=== PATIENT | male | born 1940 | race Caucasian/White ===

== ENCOUNTER 2021-04-18 12:33 | Inpatient (IN) | payer MEDICARE, OTHER ==
[~2021-04-18] VITALS: Ht 170.2 cm; Wt 110.2 kg
--- NOTE | 2021-04-18 12:44 | NUR ---
TO ER BED 4, C/O SOB AND LABORED BREATHING, ATTACHED TO MONITOR AND POX, SALINE LOCK ESTABLISHED
[2021-04-18 12:58] LABS: BASOPHILS % (AUTO) 0.3 % (0.0-2.0); EOSINOPHILS % (AUTO) 0.1 % (0.0-6.0); HEMATOCRIT 36 % (39-51); HEMOGLOBIN 11.9 g/dL (13.5-17.5); MEAN CORPUSCULAR HGB CONC 33 g/dl (31.0-36.0); MEAN CORPUSCULAR VOLUME 92 fL (80-96); MONOCYTES # (AUTO) 1.2 K/uL (0.1-1.30); MONOCYTES % (AUTO) 9.1 % (2.0-12.0); NEUTROPHILS # (AUTO) 10.4 K/uL (1.8-8.9); NEUTROPHILS % (AUTO) 82.5 % (43.0-81.0); PLATELET COUNT (AUTO) 171 K/uL (150-450); RED BLOOD CELL COUNT(AUTO) 3.96 MIL/uL (4.5-6.0); WHITE BLOOD COUNT (AUTO) 12.6 K/uL (4.3-11.0)
--- NOTE | 2021-04-18 12:58 | NUR ---
COVID SWAB SENT TO LAB
[2021-04-18] MEDS ORDERED: SERT100T PO (13:02)
[2021-04-18] MEDS ORDERED: RISP2TAB85 PO (13:02)
[2021-04-18] MEDS ORDERED: FAMO20TA8 PO (13:02)
[2021-04-18] MEDS ORDERED: ATOR20TA PO (13:02)
--- NOTE | 2021-04-18 13:02 | NUR ---
RAD AT BEDSIDE
[2021-04-18 13:27] LABS: ALANINE AMINOTRANSFERASE 22 U/L (12-78); ALBUMIN 3.2 g/dL (3.4-5.0); ALKALINE PHOSPHATASE 66 U/L (46-116); ASPARTATE AMINOTRANSFERASE 21 U/L (15-37); BILIRUBIN,DIRECT 0.2 mg/dL (0.0-0.2); BILIRUBIN,TOTAL 0.7 mg/dL (0.2-1.0); CALCIUM, SERUM 8.6 mg/dL (8.5-10.1); CARBON DIOXIDE 25 mmol/L (21-32); CHLORIDE 106 mmol/L (98-107); CREATININE 2.2 mg/dL (0.6-1.3); GLUCOSE 125 mg/dL (74-106); POTASSIUM 3.8 mmol/L (3.5-5.1); SODIUM SERUM 143 mmol/L (136-145); UREA NITROGEN, BLOOD 34 mg/dL (7-18)
[2021-04-18] MEDS ORDERED: IV NS 0.9% 1,000 ML BAG IV ONE (14:00)
--- NOTE | 2021-04-18 14:26 | NUR ---
JAMES, CALLED, SPOKE TO AND PROVIDED HUNG# [phone]
[2021-04-18] MEDS ORDERED: ONDANSETRON HCL/PF 4 MG/2 ML VIAL IVP PRN (15:30)
[2021-04-18] MEDS ORDERED: Z GUARD REMEDY 2 OZ OINT TP PRN (15:30)
[2021-04-18] MEDS ORDERED: ACETAMINOPHEN 325 MG TABLET PO PRN (15:30)
[2021-04-18] MEDS ORDERED: hydrALAZINE HCL IV 20 MG VIAL IV PRN (15:30)
[2021-04-18] MEDS ORDERED: MAGNESIUM HYDROXIDE 30 ML UDC PO PRN (15:30)
[2021-04-18] MEDS ORDERED: MAG HYDROX/AL HYDROX/SIMETH 30 ML UDC PO PRN (15:30)
[2021-04-18] MEDS ORDERED: MORPHINE SULFATE INJ 2 MG/ML DISP.SYRIN IV PRN (15:30)
--- NOTE | 2021-04-18 16:01 | NUR ---
BED 104
[2021-04-18 17:00] VITALS: BP 150/97
[2021-04-18 20:00] VITALS: BP 125/76
--- NOTE | 2021-04-18 20:30 | NUR ---
Pts noted pulling iv , informed md enriquez with order for bilateral mittens iv peripheral inserted on left hand x 1 attempt with G22 with good blood return well tolerated by pts.spoke to the for the mittens order. consented for the restraint , will continue to monitor pts.
--- NOTE | 2021-04-18 21:19 | NUR ---
RN NOTE. PT IS PULLING IVS. NOTIFIED RIA MORE. RECEIVED THE ORDER FOR NICK.
[2021-04-18] MEDS: IV NS 0.9% 1,000 ML IV PRN (21:24)
[2021-04-18] MEDS: ATORVASTATIN 40 MG TABLET PO SCH (21:25)
[2021-04-18] MEDS: risperiDONE 1 MG TABLET PO SCH (21:25)
[2021-04-18] MEDS: ENOXAPARIN SODIUM 40 MG/0.4 ML DISP.SYRIN SQ SCH (21:25)
--- NOTE | 2021-04-18 23:26 | NUR ---
CARDROOM DRAWING RUNNER. INITIAL ASSESSMENT. RECEIVED THE PT REST ON THE BED. AWAKE, ALERT. CONFUSED. PULLING OUT IVS. ROOM AIR. HOB ELEVATED. IV LT HAND 22G. IVF NS 75ML/H. WILL CONTINUE TO MONITOR VITALS.
[2021-04-19] VITALS: BP 118/62
--- NOTE | 2021-04-19 03:29 | NUR ---
rn note AM CARE GIVEN. REMAINING SAME IVF RUNNING. HOB ELEVATED. TURN AND RE POSITION Q2H, WILL CONTINUE TO MONITOR . WILL CONTINUE TO MONITOR VITALS
[2021-04-19 04:00] VITALS: BP 118/62
[2021-04-19 05:51] LABS: BASOPHILS % (AUTO) 0.2 % (0.0-2.0); EOSINOPHILS % (AUTO) 0.3 % (0.0-6.0); HEMATOCRIT 35 % (39-51); HEMOGLOBIN 11.6 g/dL (13.5-17.5); LYMPHOCYTES # (AUTO) 1.2 K/uL (0.8-4.8); LYMPHOCYTES % (AUTO) 10.3 % (20.0-44.0); MEAN CORPUSCULAR HGB CONC 33 g/dl (31.0-36.0); MEAN CORPUSCULAR VOLUME 92 fL (80-96); MONOCYTES # (AUTO) 0.9 K/uL (0.1-1.30); MONOCYTES % (AUTO) 7.8 % (2.0-12.0); NEUTROPHILS # (AUTO) 9.6 K/uL (1.8-8.9); NEUTROPHILS % (AUTO) 81.4 % (43.0-81.0); PLATELET COUNT (AUTO) 161 K/uL (150-450); WHITE BLOOD COUNT (AUTO) 11.8 K/uL (4.3-11.0)
[2021-04-19 06:18] LABS: ALANINE AMINOTRANSFERASE 22 U/L (12-78); ALBUMIN 3.2 g/dL (3.4-5.0); ALKALINE PHOSPHATASE 59 U/L (46-116); ASPARTATE AMINOTRANSFERASE 32 U/L (15-37); BILIRUBIN,TOTAL 0.8 mg/dL (0.2-1.0); CALCIUM, SERUM 8.5 mg/dL (8.5-10.1); CARBON DIOXIDE 26 mmol/L (21-32); CHLORIDE 109 mmol/L (98-107); CREATININE 2.4 mg/dL (0.6-1.3); GLUCOSE 104 mg/dL (74-106); MAGNESIUM 2.5 mg/dL (1.8-2.4); PHOSPHORUS 5.4 mg/dL (2.5-4.9); POTASSIUM 4.1 mmol/L (3.5-5.1); SODIUM SERUM 145 mmol/L (136-145); TOTAL PROTEIN, SERUM 6.9 g/dL (6.4-8.2); UREA NITROGEN, BLOOD 42 mg/dL (7-18)
[2021-04-19 08:00] VITALS: BP 144/82
--- NOTE | 2021-04-19 08:10 | NUR ---
RN Note: Pt received alert awake oriented X 1, with periods of forgetfulness, confusion. On RA, no breathing distress noted. IV fluids running as ordered. Safety measures observed. Bilateral hand mittens ON for safety, Pt attempting remove lines/tubings. Will continue to monitor closely.
[2021-04-19] MEDS: FAMOTIDINE (20 MG) 20 MG TABLET PO SCH (08:39)
[2021-04-19] MEDS: SERTRALINE HCL 50 MG TABLET PO SCH (08:39)
[2021-04-19 12:00] VITALS: BP 137/76
[2021-04-19] MEDS: CLINDAMYCIN 900 MG in IV D5W 50 ML IV SCH ×2 (12:35→21:07)
[2021-04-19] MEDS: IV NS 0.9% 1,000 ML IV PRN ×2 (12:35→21:11)
[2021-04-19 16:00] VITALS: BP 141/85
[2021-04-19 20:00] VITALS: BP 129/72
[2021-04-19] MEDS: ATORVASTATIN 40 MG TABLET PO SCH (21:08)
[2021-04-19] MEDS: ENOXAPARIN SODIUM 40 MG/0.4 ML DISP.SYRIN SQ SCH (21:08)
[2021-04-19] MEDS: risperiDONE 1 MG TABLET PO SCH (21:09)
[2021-04-20 04:00] VITALS: BP 149/83
[2021-04-20] MEDS: CLINDAMYCIN 900 MG in IV D5W 50 ML IV SCH ×3 (05:10→21:11)
--- NOTE | 2021-04-20 07:39 | NUR ---
RN OPENING NOTE: Patient is alert awake oriented X 1, with periods of confusion and agitation. On RA, no respiratory distress noted. Hand mittens in place due to attempts of removal of lines. Safety checks done, bed in locked and lowest position, side rails up x 3, call light within reach.
[2021-04-20 08:15] LABS: BASOPHILS % (AUTO) 0.3 % (0.0-2.0); EOSINOPHILS % (AUTO) 0.1 % (0.0-6.0); HEMATOCRIT 32 % (39-51); HEMOGLOBIN 10.7 g/dL (13.5-17.5); LYMPHOCYTES # (AUTO) 0.9 K/uL (0.8-4.8); LYMPHOCYTES % (AUTO) 7.5 % (20.0-44.0); MEAN CORPUSCULAR HGB CONC 34 g/dl (31.0-36.0); MEAN CORPUSCULAR VOLUME 92 fL (80-96); MONOCYTES # (AUTO) 1.1 K/uL (0.1-1.30); MONOCYTES % (AUTO) 9.5 % (2.0-12.0); NEUTROPHILS # (AUTO) 9.7 K/uL (1.8-8.9); NEUTROPHILS % (AUTO) 82.6 % (43.0-81.0); PLATELET COUNT (AUTO) 162 K/uL (150-450); RED BLOOD CELL COUNT(AUTO) 3.47 MIL/uL (4.5-6.0); WHITE BLOOD COUNT (AUTO) 11.8 K/uL (4.3-11.0)
[2021-04-20] MEDS: FAMOTIDINE (20 MG) 20 MG TABLET PO SCH (08:34)
[2021-04-20] MEDS: SERTRALINE HCL 50 MG TABLET PO SCH (08:35)
[2021-04-20 08:50] LABS: ALANINE AMINOTRANSFERASE 32 U/L (12-78); ALBUMIN 2.9 g/dL (3.4-5.0); ALKALINE PHOSPHATASE 60 U/L (46-116); ASPARTATE AMINOTRANSFERASE 41 U/L (15-37); BILIRUBIN,TOTAL 0.6 mg/dL (0.2-1.0); CARBON DIOXIDE 23 mmol/L (21-32); CHLORIDE 110 mmol/L (98-107); CREATININE 3.2 mg/dL (0.6-1.3); GLUCOSE 113 mg/dL (74-106); MAGNESIUM 2.5 mg/dL (1.8-2.4); PHOSPHORUS 5.3 mg/dL (2.5-4.9); POTASSIUM 3.6 mmol/L (3.5-5.1); SODIUM SERUM 145 mmol/L (136-145); TOTAL PROTEIN, SERUM 6.5 g/dL (6.4-8.2); UREA NITROGEN, BLOOD 56 mg/dL (7-18)
[2021-04-20 10:18] LABS: CREATINE KINASE, TOTAL 372 U/L (39-308)
[2021-04-20 12:18] VITALS: BP 143/80
[2021-04-20 15:11] LABS: ALANINE AMINOTRANSFERASE 34 U/L (12-78); ALBUMIN 2.8 g/dL (3.4-5.0); ALKALINE PHOSPHATASE 59 U/L (46-116); ASPARTATE AMINOTRANSFERASE 43 U/L (15-37); BILIRUBIN,TOTAL 0.5 mg/dL (0.2-1.0); CALCIUM, SERUM 8.2 mg/dL (8.5-10.1); CARBON DIOXIDE 25 mmol/L (21-32); CHLORIDE 112 mmol/L (98-107); CREATININE 3.4 mg/dL (0.6-1.3); GLUCOSE 119 mg/dL (74-106); POTASSIUM 3.7 mmol/L (3.5-5.1); SODIUM SERUM 147 mmol/L (136-145); TOTAL PROTEIN, SERUM 6.4 g/dL (6.4-8.2); UREA NITROGEN, BLOOD 59 mg/dL (7-18)
--- NOTE | 2021-04-20 16:00 | NUR ---
CT Abdomen/pelvis done.
--- NOTE | 2021-04-20 16:33 | NUR ---
Noted with hematuria on F/C MD amanda notified, gave order to flush with 200ml q6 PRN, continue with lovenox do not hold. Will continue to monitor.
--- NOTE | 2021-04-20 18:59 | NUR ---
RN CLOSING NOTES Patient is alert and oriented x1, with periods of agitation and confusion as baseline. F/C inserted due to abdominal distention obtained 3400cc at the end of shift. Pt went for CT scan of ABD/Pelvis upon return noted with hematuria, irrigated with NS effective. Removed one hand mitten for trial restraint D/C is ineffective. 02 88-90% room air with audible wheezing, placed on 2 liters of 02 93-94%. T 99.0-99.4F during shift. Assisted for all meals by staff, combative during AM care-linen change. Safety check done, bed locked in lowest position, side rails up x 3, call light wihtin reach.
--- NOTE | 2021-04-20 19:20 | NUR ---
RN OPENING NOTES PT RECEIVED IN BED. CURRENTLY ON ROOM AIR SHOWING NO S/S OF RESPIRATORY DISTRESS/SOB. PT IS A&OX1. LOW CATHETER NOTED. PT HAS MITTENS ON HANDS DUE TO PT ATTEMPTING TO REMOVE IV LINE. SKIN REDNESS/EDEMA NOTED ON LOWER LEGS. PT CURRENTLY ON REGULAR DIET AND HAS IV LINE ON LEFT HAND FLUSHED, PATENT, AND INTACT. ALL SAFETY MEASURES IMPLEMENTED. BED LOCKED AND IN LOWEST POSITION. BED ALARM ON. CALL LIGHT WITHIN REACH. WILL CONTINUE TO MONITOR THROUGHOUT THE SHIFT. Addendum: 04/20/21 at 2348 by KASSY GONCALVES RN PT NOW ON 2L O2 VIA NC
[2021-04-20 20:00] VITALS: BP 136/79
[2021-04-20] MEDS: ENOXAPARIN SODIUM 40 MG/0.4 ML DISP.SYRIN SQ SCH (21:09)
[2021-04-20] MEDS: ATORVASTATIN 40 MG TABLET PO SCH (21:10)
[2021-04-20] MEDS: risperiDONE 1 MG TABLET PO SCH (21:10)
[2021-04-21 04:00] VITALS: BP_SYST 111; BP_SYST 136; BP_DIAS 64; BP_DIAS 89
[2021-04-21] MEDS: CLINDAMYCIN 900 MG in IV D5W 50 ML IV SCH (05:04)
--- NOTE | 2021-04-21 06:39 | NUR ---
RN CLOSING NOTES NO CHANGES IN PT CONDITION THROUGHOUT SHIFT. PT IS ON 2L OF O2 VIA NC SHOWING NO S/S OF RESPIRATORY DISTRESS. PT IS A&OX1. PT HAS REDNESS ON BILATERAL LOWER LEG EXTREMITIES. IV LINE ON LEFT HAND AND RIGHT HAND FLUSHED, PATENT, AND INTACT. PT KEPT CLEAN AND COMFORTABLE THROUGHOUT SHIFT. ALL DUE MEDS GIVEN ORDERED. ALL SAFETY MEASURES IMPLEMENTED. BED LOCKED AND IN LOWEST POSITION. BED ALARM ON. CALL LIGHT WITHIN REACH. WILL ENDORSE TO MORNING SHIFT RN FOR SANJIV.
[2021-04-21 08:00] VITALS: BP 132/78
[2021-04-21] MEDS: SERTRALINE HCL 50 MG TABLET PO SCH (09:16)
[2021-04-21] MEDS: FAMOTIDINE (20 MG) 20 MG TABLET PO SCH (09:16)
[2021-04-21 09:55] LABS: BASOPHILS % (AUTO) 0.3 % (0.0-2.0); EOSINOPHILS % (AUTO) 0.4 % (0.0-6.0); HEMATOCRIT 34 % (39-51); HEMOGLOBIN 11.2 g/dL (13.5-17.5); LYMPHOCYTES # (AUTO) 0.9 K/uL (0.8-4.8); LYMPHOCYTES % (AUTO) 8.5 % (20.0-44.0); MEAN CORPUSCULAR HGB CONC 33 g/dl (31.0-36.0); MEAN CORPUSCULAR VOLUME 93 fL (80-96); MONOCYTES # (AUTO) 1.1 K/uL (0.1-1.30); MONOCYTES % (AUTO) 9.7 % (2.0-12.0); NEUTROPHILS # (AUTO) 9.1 K/uL (1.8-8.9); NEUTROPHILS % (AUTO) 81.1 % (43.0-81.0); PLATELET COUNT (AUTO) 166 K/uL (150-450); RED BLOOD CELL COUNT(AUTO) 3.68 MIL/uL (4.5-6.0); WHITE BLOOD COUNT (AUTO) 11.2 K/uL (4.3-11.0)
[2021-04-21 10:18] LABS: ALANINE AMINOTRANSFERASE 38 U/L (12-78); ALBUMIN 2.6 g/dL (3.4-5.0); ALKALINE PHOSPHATASE 61 U/L (46-116); ASPARTATE AMINOTRANSFERASE 36 U/L (15-37); BILIRUBIN,TOTAL 0.5 mg/dL (0.2-1.0); CALCIUM, SERUM 8.1 mg/dL (8.5-10.1); CARBON DIOXIDE 28 mmol/L (21-32); CHLORIDE 115 mmol/L (98-107); CREATININE 2.2 mg/dL (0.6-1.3); GLUCOSE 132 mg/dL (74-106); POTASSIUM 3.3 mmol/L (3.5-5.1); SODIUM SERUM 154 mmol/L (136-145); TOTAL PROTEIN, SERUM 6.1 g/dL (6.4-8.2); UREA NITROGEN, BLOOD 46 mg/dL (7-18)
[2021-04-21 11:06] LABS: CREATININE KINASE (CK),MB 2.4 ng/mL (0.0-10.4)
[2021-04-21] MEDS: CLINDAMYCIN HCL 150 MG CAPSULE PO SCH ×3 (13:07→20:25)
--- NOTE | 2021-04-21 19:30 | NUR ---
RN OPENING NOTE RECEIVED PT AWAKE IN BED. A/O X1. PT ON 2L O2 VIA NC, SATS 97%. NO SOB OR S/S OF RESPIRATORY DISTRESS NOTED. SITTER AT BEDSIDE. PT HAS MITTENS ON BILATERAL HANDS DUE TO PT ATTEMPTING TO REMOVE IV LINE. LOW CATHETER IN PLACE. SKIN REDNESS AND EDEMA NOTED ON BILATERAL LOWER LEGS. IV ACCESS IN LEFT HAND #22, INTACT AND PATENT. SAFETY MEASURES MAINTAINED. BED IN LOWEST LOCKED POSITION, HOB ELEVATED, SIDE RAILS UP X2. CALL LIGHT AND TABLE WITHIN REACH. WILL CONTINUE WITH PLAN OF CARE.
[2021-04-21 20:00] VITALS: BP 134/96
[2021-04-21] MEDS: ENOXAPARIN SODIUM 40 MG/0.4 ML DISP.SYRIN SQ SCH (20:41)
[2021-04-21] MEDS: ATORVASTATIN 40 MG TABLET PO SCH (21:11)
[2021-04-21] MEDS: risperiDONE 1 MG TABLET PO SCH (21:11)
[2021-04-21] MEDS: FINASTERIDE (5 MG) 5 MG TABLET PO SCH (21:35)
[2021-04-21] MEDS: TAMSULOSIN 0.4 MG CAP.SR.24H PO SCH (21:36)
[2021-04-22 04:00] VITALS: BP 118/60
[2021-04-22] MEDS: IV D5W 1,000 ML IV PRN (04:19)
--- NOTE | 2021-04-22 06:15 | NUR ---
RN CLOSING NOTE PT IS IN BED WITH EYES CLOSED, AROUSABLE TO STIMULATION. A/O X1. PT ON 2L O2 VIA NC, SATS 97%. NO SOB OR S/S OF RESPIRATORY DISTRESS NOTED. SITTER AT BEDSIDE. PT HAS MITTENS ON BILATERAL HANDS DUE TO PT ATTEMPTING TO REMOVE IV LINE. LOW CATHETER IN PLACE. IV ACCESS IS INTACT, PATENT, AND FLUSHING WELL. ALL NEEDS HAVE BEEN MET. SAFETY PRECAUTIONS MAINTAINED AT ALL TIMES. BED IN LOWEST LOCKED POSITION, HOB ELEVATED, SIDE RAILS UP X2. CALL LIGHT AND TABLE WITHIN REACH. WILL ENDORSE TO ONCOMING NURSE FOR SANJIV.
[2021-04-22 07:02] LABS: BASOPHILS % (AUTO) 0.4 % (0.0-2.0); EOSINOPHILS % (AUTO) 1.5 % (0.0-6.0); HEMATOCRIT 35 % (39-51); HEMOGLOBIN 11.7 g/dL (13.5-17.5); LYMPHOCYTES # (AUTO) 1.2 K/uL (0.8-4.8); MEAN CORPUSCULAR HGB CONC 34 g/dl (31.0-36.0); MEAN CORPUSCULAR VOLUME 91 fL (80-96); MONOCYTES # (AUTO) 0.9 K/uL (0.1-1.30); MONOCYTES % (AUTO) 8.5 % (2.0-12.0); NEUTROPHILS # (AUTO) 8.1 K/uL (1.8-8.9); NEUTROPHILS % (AUTO) 77.6 % (43.0-81.0); PLATELET COUNT (AUTO) 174 K/uL (150-450); RED BLOOD CELL COUNT(AUTO) 3.79 MIL/uL (4.5-6.0); WHITE BLOOD COUNT (AUTO) 10.4 K/uL (4.3-11.0)
[2021-04-22 07:47] LABS: MAGNESIUM 1.9 mg/dL (1.8-2.4); PHOSPHORUS 3.6 mg/dL (2.5-4.9)
[2021-04-22 08:07] LABS: *SPE ALBUMIN 2.9 g/dL (2.9-4.4); *SPE ALPHA-1-GLOBULIN 0.4 g/dL (0.0-0.4); *SPE ALPHA-2-GLOBULIN 0.8 g/dL (0.4-1.0); *SPE BETA GLOBULIN 0.8 g/dL (0.7-1.3); *SPE GLOBULIN, TOTAL 2.8 g/dL (2.2-3.9); *SPE M-SPIKE Not Observed g/dL (Not Observed); *SPEGAMMA GLOBULIN 0.8 g/dL (0.4-1.8)
[2021-04-22] MEDS: CLINDAMYCIN HCL 150 MG CAPSULE PO SCH ×4 (10:26→21:03)
[2021-04-22] MEDS: FAMOTIDINE (20 MG) 20 MG TABLET PO SCH (10:27)
[2021-04-22] MEDS: FINASTERIDE (5 MG) 5 MG TABLET PO SCH (10:27)
[2021-04-22] MEDS: SERTRALINE HCL 50 MG TABLET PO SCH (10:40)
[2021-04-22 12:00] VITALS: BP 138/82
[2021-04-22] MEDS ORDERED: POLYETHYLENE GLYCOL 3350 17 GM POWD.PACK PO ONE (14:00)
[2021-04-22] MEDS ORDERED: MINERAL OIL 133 ML (PYXIS) 1 EA ENEMA RC ONE (14:00)
[2021-04-22] MEDS ORDERED: POLYETHYLENE GLYCOL 3350 17 GM POWD.PACK PO PRN (14:00)
--- NOTE | 2021-04-22 15:53 | NUR ---
BILATERAL HAND MITTENS COMPLETED ,SITTER AT BEDSIDE,WILL CONTINUE TO MONITOR.
[2021-04-22] MEDS: DOCUSATE SODIUM 100 MG CAPSULE PO SCH (17:27)
[2021-04-22 20:00] VITALS: BP 142/82
--- NOTE | 2021-04-22 20:00 | NUR ---
RN NOTE RECEIVED PT IN BED, AROUSABLE TO VERBAL STIMULI. NOT FOLLOWING ANY COMMANDS. NOT IN ANY DISTRESS, NO SIGNS OF PAIN. PT ON IVFLUIDS OF D5W RUNNING AT 43MLS/HR. LOW DRAINING CLEAR YELLOW URINE. WILL CONTINUE TO MONITOR. ALL SAFETY MEASURES IN PLACE.
--- NOTE | 2021-04-22 20:05 | NUR ---
RN NOTE PT WITH DUE ENEMA AT 1400 ONCE. AM SHIFT NURSE UNABLE TO GIVE. CALLED PHARMACY. WILL ADMINISTER ON SHIFT.
--- NOTE | 2021-04-22 20:30 | NUR ---
rn note pt noted with temp 100.8. cooling measures applied. will continue to monitor.
[2021-04-22] MEDS: TAMSULOSIN 0.4 MG CAP.SR.24H PO SCH (21:03)
[2021-04-22] MEDS: ATORVASTATIN 40 MG TABLET PO SCH (21:03)
[2021-04-22] MEDS: risperiDONE 1 MG TABLET PO SCH (21:03)
[2021-04-22] MEDS: ENOXAPARIN SODIUM 40 MG/0.4 ML DISP.SYRIN SQ SCH (21:11)
--- NOTE | 2021-04-22 23:58 | NUR ---
RN NOTE PT SLEEPING, NO DISTRESS NOTED. ENEMA WAS GIVEN. BODY TEMP WENT DOWN TO 98.9. SITTER AT BEDSIDE. REPORT GIVEN TO GUNJAN FOR SANJIV,.
--- NOTE | 2021-04-23 01:35 | NUR ---
BEDSIDE REPORT RECIEVED FROM GUNJAN ECHAVARRIA. STEPHANIE TAPIA CNA AT THE BEDSIDE. WILL CONT TO MONITOR.
[2021-04-23] MEDS: IV D5W 1,000 ML IV PRN (03:34)
[2021-04-23 04:00] VITALS: BP 142/78
[2021-04-23 06:39] LABS: BASOPHILS # (AUTO) 0.1 K/uL (0.0-0.2); BASOPHILS % (AUTO) 0.4 % (0.0-2.0); EOSINOPHILS % (AUTO) 2.2 % (0.0-6.0); HEMATOCRIT 37 % (39-51); HEMOGLOBIN 12.1 g/dL (13.5-17.5); LYMPHOCYTES # (AUTO) 1.4 K/uL (0.8-4.8); LYMPHOCYTES % (AUTO) 10.7 % (20.0-44.0); MEAN CORPUSCULAR HGB CONC 33 g/dl (31.0-36.0); MEAN CORPUSCULAR VOLUME 92 fL (80-96); MONOCYTES # (AUTO) 1.1 K/uL (0.1-1.30); MONOCYTES % (AUTO) 8.7 % (2.0-12.0); NEUTROPHILS # (AUTO) 9.8 K/uL (1.8-8.9); PLATELET COUNT (AUTO) 176 K/uL (150-450); RED BLOOD CELL COUNT(AUTO) 3.99 MIL/uL (4.5-6.0); WHITE BLOOD COUNT (AUTO) 12.6 K/uL (4.3-11.0)
--- NOTE | 2021-04-23 07:37 | NUR ---
RECEIVED REPORT FROM TABITHA HAGEN FOR CONTINUATION OF CARE, PATIENT SLEEPING AT THIS TIME, NO ACUTE DISTRESS NOTED.
[2021-04-23] MEDS: CLINDAMYCIN HCL 150 MG CAPSULE PO SCH ×4 (08:27→21:30)
[2021-04-23] MEDS: FAMOTIDINE (20 MG) 20 MG TABLET PO SCH (08:27)
[2021-04-23] MEDS: DOCUSATE SODIUM 100 MG CAPSULE PO SCH ×2 (08:27→17:14)
[2021-04-23] MEDS: SERTRALINE HCL 50 MG TABLET PO SCH (08:27)
[2021-04-23] MEDS: FINASTERIDE (5 MG) 5 MG TABLET PO SCH (08:27)
--- NOTE | 2021-04-23 08:45 | NUR ---
RN NOTE PT AWAKE IN BED RESTING. ON RL NC WITH NO SOB OR RESPIRATORY DISTRESS PRESENT. A/O X2 AND ABLE TO SPEAK LUXEMBOURGISH. NO COMPLAINT OR S/S OF PAIN. NO NAUSEA. NO FARE REGISTER REPAIRER PRESENT. NO EDEMA PRESENT. ON BEDREST WITH F/C PRESENT. DRAINING WITH WITH CLEAR YELLOW FLUID. SITTER AT BEDSIDE. IV PRESENT ON L HAND 22G AND FLUSHES WELL. LABS AND ORDERS REVIEWED. SAFETY MEASURES IN PLACE. SIDE RAILS RAISED. BED LOWERED. CALL LIGHT WITHIN REACH. WILL CONTINUE TO MONITOR.
[2021-04-23 08:47] LABS: CARBON DIOXIDE 31 mmol/L (21-32); CHLORIDE 114 mmol/L (98-107); GLUCOSE 121 mg/dL (74-106); SODIUM SERUM 153 mmol/L (136-145)
[2021-04-23 08:48] LABS: CALCIUM, SERUM 8.2 mg/dL (8.5-10.1); CREATININE 1.3 mg/dL (0.6-1.3); UREA NITROGEN, BLOOD 31 mg/dL (7-18)
--- NOTE | 2021-04-23 08:57 | NUR ---
ENDORSED PATIENT TO LAVONNE ECHAVARRIA FOR CONTINUATION OF CARE, PATIENT IN STABLE CONDITION.
[2021-04-23 09:10] LABS: POTASSIUM 2.6 mmol/L (3.5-5.1)
[2021-04-23] MEDS: POTASSIUM CHLORIDE 20 MEQ TAB.PRT.SR PO SCH ×2 (09:33→13:22)
[2021-04-23 12:00] VITALS: BP 135/75
--- NOTE | 2021-04-23 18:38 | NUR ---
RN CLOSING NOTE PT AWAKE IN BED RESTING. ON RL NC WITH NO SOB OR RESPIRATORY DISTRESS PRESENT. A/O X2 AND ABLE TO SPEAK TAMAZIGHT. NO COMPLAINT OR S/S OF PAIN. NO NAUSEA. NO LABORER BITUMINOUS PAVING PRESENT. NO EDEMA PRESENT. ON BEDREST WITH F/C PRESENT. DRAINING WITH WITH CLEAR YELLOW FLUID. SITTER AT BEDSIDE. IV PRESENT ON L HAND 22G AND FLUSHES WELL. LABS AND ORDERS REVIEWED. ROUTINE MEDS GIVEN. SAFETY MEASURES IN PLACE. SIDE RAILS RAISED. BED LOWERED. CALL LIGHT WITHIN REACH. REPORT TO BE GIVEN TO NIGHT NURSE FOR SANJIV.
--- NOTE | 2021-04-23 19:20 | NUR ---
RN OPENING NOTES PT RECEIVED IN BED. CURRENTLY ON 2L OF O2 VIA NC SHOWING NO S/S OF RESPIRATORY DISTRESS. PT IS A&OX1. LOW CATHETER NOTED. PT CURRENTLY ON REGULAR DIET AND HAS IV LINE ON LEFT HAND FLUSHED, PATENT, AND INTACT. CURRENTLY INFUSING D5W @ 43ML/HR. ALL SAFETY MEASURES IMPLEMENTED. BED LOCKED AND IN LOWEST POSITION. BED ALARM ON. CALL LIGHT WITHIN REACH. WILL CONTINUE TO MONITOR THROUGHOUT THE SHIFT.
[2021-04-23 20:00] VITALS: BP 137/84
[2021-04-23] MEDS: ENOXAPARIN SODIUM 40 MG/0.4 ML DISP.SYRIN SQ SCH (21:30)
[2021-04-23] MEDS: risperiDONE 1 MG TABLET PO SCH (21:30)
[2021-04-23] MEDS: ATORVASTATIN 40 MG TABLET PO SCH (21:31)
[2021-04-23] MEDS: TAMSULOSIN 0.4 MG CAP.SR.24H PO SCH (21:31)
[2021-04-24 04:00] VITALS: BP 137/82
--- NOTE | 2021-04-24 07:15 | NUR ---
RN NOTE PATIENT OBSERVED IN BED, AWAKE, ALERT AND ORIENTED X1 WITH EPISODE OF CONFUSION, BREATHING EVEN AND UNLABORED, WITH RIGHT FA IV SITE PATENT FLUSHING WELL, PATIENT HAS A LEFT HAND IV HYDRATION INFUSING WELL, PATIENT WITH LOW CATHETER DRAINING WELL WITH NO HEMATURIA NOTED, FOR DISCHARGE TODAY, BED WHEELS LOCK, CALL LIGHT WITHIN REACH, SAFETY MEASURE OBSERVED, WILL CONTINUE TO MONITOR
--- NOTE | 2021-04-24 07:41 | NUR ---
RN NOTE NO CHANGES IN PT CONDITION THROUGHOUT THE SHIFT. PT IS ON 2L OF VIA NC. NO S/S OF RESP DISTRESS. CURRENTLY A&OX1. PT HAS LEFT HAND IV LINE FLUSHED, PATENT, AND INTACT. INFUSING D5W AT 43ML/HR. ALL DUE MEDS GIVEN ORDERED. PT KEPT CLEAN AND COMFORTABLE. ALL SAFETY MEASURES IMPLEMENTED. BED LOCKED AND IN LOWEST POSITION, BED ALARM ON, CALL LIGHT WITHIN REACH. WILL CONTINUE TO MONITOR THROUGHOUT THE SHIFT.
[2021-04-24] MEDS: IV D5W 1,000 ML IV PRN (07:46)
[2021-04-24] MEDS: CLINDAMYCIN HCL 150 MG CAPSULE PO SCH ×2 (09:28→14:04)
[2021-04-24] MEDS: FINASTERIDE (5 MG) 5 MG TABLET PO SCH (09:28)
[2021-04-24] MEDS: FAMOTIDINE (20 MG) 20 MG TABLET PO SCH (09:28)
[2021-04-24] MEDS: SERTRALINE HCL 50 MG TABLET PO SCH (09:28)
[2021-04-24] MEDS: DOCUSATE SODIUM 100 MG CAPSULE PO SCH (09:28)
[2021-04-24] MEDS ORDERED: POTASSIUM CHLORIDE 20 MEQ POWDER PACKET GT ONE (09:30)
[2021-04-24 12:00] VITALS: BP 137/82
--- NOTE | 2021-04-24 15:15 | NUR ---
RN NOTE PATIENT TO DISCHARGE TO [facility], DISCHARGE INSTRUCTION GIVEN, PATIENT BEING DISCHARGE WITH LOW CATHETER ORDERED.
[2021-04-29] MEDS ORDERED: ACETAMINOPHEN 325 MG TABLET PO PRN (08:30)
[2021-04-29] MEDS ORDERED: MORPHINE SULFATE INJ 2 MG/ML DISP.SYRIN IV PRN (08:30)
[2021-04-29] MEDS ORDERED: Z GUARD REMEDY 2 OZ OINT TP PRN (08:30)
[2021-04-29] MEDS ORDERED: LABETALOL 20 MG/4 ML VIAL IV PRN (08:30)
[2021-04-29] MEDS ORDERED: ONDANSETRON HCL/PF 4 MG/2 ML VIAL IVP PRN (08:30)
[2021-04-29] MEDS ORDERED: hydrALAZINE HCL IV 20 MG VIAL IV PRN (08:30)
== END 2021-04-24 15:11 | DRG 291 ==
LOC: ER 12:39 → TELE1 16:37 → MEDSG1 04-19 07:56
PROVIDERS: ADMIT Internal Medicine
DX: I13.0 Hypertensive heart and chronic kidney disease with heart failure and stage 1 through stage 4 chronic kidney disease, or unspecified chronic kidney disease (principal); N17.0 Acute kidney failure with tubular necrosis; N13.30 Unspecified hydronephrosis; D68.59 Other primary thrombophilia; L03.115 Cellulitis of right lower limb; L03.116 Cellulitis of left lower limb; E87.0 Hyperosmolality and hypernatremia; N18.9 Chronic kidney disease, unspecified; I50.9 Heart failure, unspecified; Z20.822 Contact with and (suspected) exposure to COVID-19; E78.00 Pure hypercholesterolemia, unspecified; F02.80 Dementia in other diseases classified elsewhere, unspecified severity, without behavioral disturbance, psychotic disturbance, mood disturbance, and anxiety; G30.9 Alzheimer's disease, unspecified; Z79.899 Other long term (current) drug therapy; N13.9 Obstructive and reflux uropathy, unspecified; K21.9 Gastro-esophageal reflux disease without esophagitis; R33.9 Retention of urine, unspecified; E87.6 Hypokalemia; E86.0 Dehydration; F32.9 Major depressive disorder, single episode, unspecified; I70.0 Atherosclerosis of aorta; K56.41 Fecal impaction; K57.90 Diverticulosis of intestine, part unspecified, without perforation or abscess without bleeding; Z74.09 Other reduced mobility
CPT/HCPCS: 36415; 71045-TC; 71250-TC; 74018; 76770-TC; 76870-TC; 80048-TC; 80053-TC; 80076-TC; 82550-TC; 82553; 83605-TC; 83735-TC; 83880; 83970; 84100-TC; 84155; 84165; 84484-TC; 85025-TC; 87081-TC; 93307-TC; 93970-TC; 97116-TC; 97530-TC; C9803; G0378; J1650; J3490; J7030; J7050; J7060; J7070; U0003

== ENCOUNTER 2021-04-29 06:03 | Inpatient (IN) | payer MEDICARE, OTHER ==
[~2021-04-29] VITALS: Ht 170.2 cm; Wt 97.5 kg
[~2021-04-29 06:03] MED LIST: ATOR20TA PO; FAMO20TA8 PO; RISP2TAB85 PO; SERT100T PO
[2021-04-29] MEDS ORDERED: LIDOCAINE 2% JEL UROJET 10 ML MM ONE ×2 (06:14→06:30)
--- NOTE | 2021-04-29 06:20 | NUR ---
F/C 16FR INSERTED WITH DIFFICULTY WITH SAUNDRA COLOR URINE. PT TOLERATED PROCEDURE WELL. URINE SAMPLE COLLECTED AND SENT TO LAB.
--- NOTE | 2021-04-29 06:30 | NUR ---
lab at bedside
[2021-04-29 06:45] LABS: BASOPHILS % (AUTO) 0.3 % (0.0-2.0); EOSINOPHILS % (AUTO) 0.9 % (0.0-6.0); HEMATOCRIT 36 % (39-51); HEMOGLOBIN 11.6 g/dL (13.5-17.5); LYMPHOCYTES # (AUTO) 1.5 K/uL (0.8-4.8); LYMPHOCYTES % (AUTO) 9.5 % (20.0-44.0); MEAN CORPUSCULAR HGB CONC 33 g/dl (31.0-36.0); MEAN CORPUSCULAR VOLUME 93 fL (80-96); MONOCYTES % (AUTO) 6.4 % (2.0-12.0); NEUTROPHILS % (AUTO) 82.9 % (43.0-81.0); PLATELET COUNT (AUTO) 199 K/uL (150-450); RED BLOOD CELL COUNT(AUTO) 3.85 MIL/uL (4.5-6.0); WHITE BLOOD COUNT (AUTO) 15.6 K/uL (4.3-11.0)
[2021-04-29 06:46] LABS: BILIRUBIN,URINE SMALL (NEGATIVE); COLOR,URINE DARK YELLOW (YELLOW); LEUKOCYTE ESTERASE ,URINE NEGATIVE (NEGATIVE); NITRITE, URINE NEGATIVE (NEGATIVE); PROTEIN,URINE 100 mg/dl (NEGATIVE); UGLUCOSE NEGATIVE (NEGATIVE); UROBILINOGEN,URINE 0.2 EU/dL (0.2)
--- NOTE | 2021-04-29 06:59 | NUR ---
spoke to Dulce, ,
[2021-04-29 07:11] LABS: RBC,URINE TOO NUMEROUS TO COUN /HPF (0-2)
[2021-04-29 07:12] LABS: BACTERIA,URINE None seen /HPF (None Seen); SQUAMOUS EPITHELIAL CELL,UR None Seen /HPF (None Seen); WBC,URINE 0-2 /HPF (0-3)
[2021-04-29 07:28] LABS: CALCIUM, SERUM 7.9 mg/dL (8.5-10.1); CREATININE 1.2 mg/dL (0.6-1.3)
[2021-04-29] MEDS ORDERED: IV NS 0.9% 1,000 ML BAG IV ONE (07:30)
[2021-04-29 07:31] LABS: POTASSIUM 2.8 mmol/L (3.5-5.1)
[2021-04-29] MEDS ORDERED: TAMS-12 PO (07:51)
[2021-04-29] MEDS ORDERED: SENN-261 PO (07:51)
[2021-04-29] MEDS ORDERED: DOCU-141 PO (07:51)
[2021-04-29] MEDS ORDERED: ACET-2605 PO (07:51)
[2021-04-29] MEDS ORDERED: LOPE2TAB23 PO (07:51)
[2021-04-29] MEDS ORDERED: ALLA266C2 TP (07:51)
[2021-04-29] MEDS ORDERED: FINA5TAB11 PO (07:51)
[2021-04-29] MEDS ORDERED: POLY17PO4 PO (07:51)
[2021-04-29] MEDS ORDERED: RISP0.2515 PO (07:51)
[2021-04-29] MEDS ORDERED: ACET-868 PO (07:51)
[2021-04-29] MEDS ORDERED: POTASSIUM CL. PREMIX PERIPHER. 200 ML ONE (07:59)
[2021-04-29] MEDS: POTASSIUM CL. PREMIX PERIPHER. 50 ML IV SCH ×8 (08:00→23:14)
--- NOTE | 2021-04-29 08:18 | NUR ---
called [facility] for panel admission.
--- NOTE | 2021-04-29 08:20 | NUR ---
MOVE SHEET SUBMITTED
[2021-04-29 08:57] LABS: ALANINE AMINOTRANSFERASE 62 U/L (12-78); ALBUMIN 2.7 g/dL (3.4-5.0); ALKALINE PHOSPHATASE 74 U/L (46-116); ASPARTATE AMINOTRANSFERASE 36 U/L (15-37); BILIRUBIN,DIRECT 0.1 mg/dL (0.0-0.2); BILIRUBIN,TOTAL 0.3 mg/dL (0.2-1.0); MAGNESIUM 1.9 mg/dL (1.8-2.4); TOTAL PROTEIN, SERUM 6.4 g/dL (6.4-8.2)
--- NOTE | 2021-04-29 09:00 | NUR ---
CALLED NURSING SUP FOR BED
--- NOTE | 2021-04-29 10:11 | NUR ---
COVID SWAB DONE AND SENT TO LAB
[2021-04-29] MEDS ORDERED: ACETAMINOPHEN 325 MG TABLET PO PRN ×2 (11:30→12:43)
--- NOTE | 2021-04-29 12:20 | NUR ---
CALLED [facility] FOR COVID PCR SWAB, WILL SEND
--- NOTE | 2021-04-29 12:29 | NUR ---
PCR DONE AND SENT TO LAB
--- NOTE | 2021-04-29 12:33 | NUR ---
room 104
--- NOTE | 2021-04-29 12:40 | NUR ---
GAVE REPORT TO KOBY ECHAVARRIA FOR SANJIV
--- NOTE | 2021-04-29 12:42 | NUR ---
RN NOTE RECEIVED REPORT FROM ER, WILL CONTINUE PLAN OF CARE.
[2021-04-29] MEDS ORDERED: ONDANSETRON HCL/PF 4 MG/2 ML VIAL IVP PRN (12:43)
[2021-04-29] MEDS ORDERED: Z GUARD REMEDY 2 OZ OINT TP PRN (12:43)
[2021-04-29] MEDS ORDERED: LABETALOL 20 MG/4 ML VIAL IV PRN (12:43)
[2021-04-29] MEDS ORDERED: hydrALAZINE HCL IV 20 MG VIAL IV PRN (12:43)
[2021-04-29] MEDS ORDERED: MORPHINE SULFATE INJ 2 MG/ML DISP.SYRIN IV PRN (12:43)
[2021-04-29] MEDS ORDERED: FUROSEMIDE 20 MG/2 ML VIAL IV ONE (13:00)
--- NOTE | 2021-04-29 13:45 | NUR ---
RN NOTE DR. MATHEW ORDERED BILATERAL WRIST RESTRAINT, PATIENT PULLED IV LINE AND ATTEMPTING TO PULL LOW CATHETER, ORDERS NOTED AND CARRIED OUT, CARE PLAN INITIATED.
[2021-04-29] MEDS ORDERED: POTASSIUM CHLORIDE 20 MEQ TAB.PRT.SR PO ONE (15:00)
--- NOTE | 2021-04-29 15:11 | NUR ---
RN NOTE PER DR. MATHEW OK TO GIVE LASIX IV, AND GIVE KCL 40MEQ PO ORDERED.
[2021-04-29 16:00] VITALS: BP 148/78
[2021-04-29] MEDS: DOCUSATE SODIUM 100 MG CAPSULE PO SCH (16:39)
[2021-04-29 17:36] LABS: CALCIUM, SERUM 7.8 mg/dL (8.5-10.1); CREATININE 1.1 mg/dL (0.6-1.3); POTASSIUM 2.9 mmol/L (3.5-5.1)
[2021-04-29 17:51] LABS: ALBUMIN 2.7 g/dL (3.4-5.0); BILIRUBIN,TOTAL 0.5 mg/dL (0.2-1.0); TOTAL PROTEIN, SERUM 6.4 g/dL (6.4-8.2)
[2021-04-29] MEDS ORDERED: POTASSIUM CHLORIDE 10 MEQ/50 ML PREMIXED IVPB FOR PERIPHERAL LINE IV ONE (18:30)
--- NOTE | 2021-04-29 19:04 | NUR ---
RN NOTE PATIENT AWAKE IN BED. ALERT AND ORIENTED X1, WITH CONFUSION NOTED, BREATHING EVEN AND UNLABORED, ON RA O2 SAT OF 97%,IV ON LEFT HAND G20 FLUSHING WELL, ON KCL ON RIGHT HAND AC PATENT INFUSING WELL, ADMITTED FOR HYPOKALEMIA, HEMATURIA ON LOW CATHETER NOTED, DRAINING VIA GRAVITY, ON TELEMONITOR SR OF 89, WITH BILATERAL WRIST RESTRAINT SKIN INTACT, NEEDS MET AND ANTICIPATED, CALL LIGHT WITHIN REACH, SAFETY MEASURE OBSERVED, BED WHEEL LOCK, WILL CONTINUE TO MONITOR, WILL ENDORSE TO NOC SHIFT.
[2021-04-29 20:00] VITALS: BP 118/74
[2021-04-29] MEDS: TAMSULOSIN 0.4 MG CAP.SR.24H PO SCH (21:53)
[2021-04-29] MEDS: risperiDONE 1 MG TABLET PO SCH (21:54)
[2021-04-30] VITALS (7 sets, daily range): BP systolic 98–139; BP diastolic 61–79
--- NOTE | 2021-04-30 02:31 | NUR ---
RN NOTES, ENDORSED PATIENT TO BECKY ECHAVARRIA FOR CONTINUATION OF CARE, PATIENT IN STABLE CONDITION WITH NO SOB/DISTRESS.
--- NOTE | 2021-04-30 02:35 | NUR ---
RN SANJIV NOTE RECEIVED PATIENT FROM YEN ECHAVARRIA. PATIENT IS AWAKE, CONFUSED, A/O X 1. PATIENT HAS BILATERAL SOFT WRIST RESTRAINS ON D/T PULLING ON TUBES. PATIENT'S IV ACCESS PATENT AND INTACT. LOW CATHETER IN PLACE, DRAINING YELLOW CLEAR URINE VIA GRAVITY. PATIENT TOLERATING ROOM AIR. NOT IN ANY APPARENT DISTRESS. SAFETY MEASURES IN PLACE. WILL MONITOR PATIENT CLOSELY.
[2021-04-30 06:11] LABS: BASOPHILS % (AUTO) 0.4 % (0.0-2.0); EOSINOPHILS % (AUTO) 1.8 % (0.0-6.0); HEMATOCRIT 35 % (39-51); HEMOGLOBIN 11.9 g/dL (13.5-17.5); LYMPHOCYTES # (AUTO) 1.7 K/uL (0.8-4.8); LYMPHOCYTES % (AUTO) 15.8 % (20.0-44.0); MEAN CORPUSCULAR HGB CONC 34 g/dl (31.0-36.0); MEAN CORPUSCULAR VOLUME 91 fL (80-96); MONOCYTES # (AUTO) 0.7 K/uL (0.1-1.30); MONOCYTES % (AUTO) 6.8 % (2.0-12.0); NEUTROPHILS # (AUTO) 8.1 K/uL (1.8-8.9); NEUTROPHILS % (AUTO) 75.2 % (43.0-81.0); PLATELET COUNT (AUTO) 183 K/uL (150-450); RED BLOOD CELL COUNT(AUTO) 3.86 MIL/uL (4.5-6.0); WHITE BLOOD COUNT (AUTO) 10.7 K/uL (4.3-11.0)
[2021-04-30 06:48] LABS: CALCIUM, SERUM 7.9 mg/dL (8.5-10.1); CREATININE 1.1 mg/dL (0.6-1.3); PHOSPHORUS 2.5 mg/dL (2.5-4.9); POTASSIUM 2.9 mmol/L (3.5-5.1)
--- NOTE | 2021-04-30 06:51 | NUR ---
RN CLOSING NOTE PATIENT IS IN BED, EYES CLOSED, EASILY AROUSED. PATIENT REMAINS CONFUSED, A/O X 1. BILATERAL WRIST RESTRAINTS ON TO PREVENT PATIENT FROM PULLING OUT TUBES. PATIENT TOLERATES ROOM AIR, BREATHING EVEN AND UNLABORED. TELE MONITOR READS 81 BPM SR. SAFETY MEASURES MAINTAINED. ALL ORDERS CARRIED OUT. ALL NEEDS MET AND ATTENDED. WILL ENDORSE TO DAY SHIFT NURSE FOR SANJIV.
--- NOTE | 2021-04-30 07:12 | NUR ---
RN OPENING NOTES RECEIVED PATIENT RESTING IN BED, PATIENT IS A/O X3. PATIENT IS BREATHING EVENLY AND NONLABORED ON ROOM AIR. PATIENT DOES NOT SHOW ANY SIGNS OF DISTRESS. PATIENT HAS IV ACCESS ON R FOREARM # 20 GAUGE RUNNING 1/2 NS @ 50 ML/HR. PATIENT DOES NOT COMPLAIN OF ANY PAIN AT THIS TIME. SAFETY MEASURES ARE IN PLACE, BED LOW LOCKED AND CALL LIGHT WITHIN REACH. WILL CONTINUE TO MONITOR
[2021-04-30] MEDS: FAMOTIDINE (20 MG) 20 MG TABLET PO SCH (08:43)
[2021-04-30] MEDS: FINASTERIDE (5 MG) 5 MG TABLET PO SCH (08:43)
[2021-04-30] MEDS: DOCUSATE SODIUM 100 MG CAPSULE PO SCH ×2 (08:43→16:43)
[2021-04-30] MEDS: ATORVASTATIN 10 MG TABLET PO SCH (08:43)
[2021-04-30] MEDS: SERTRALINE HCL 50 MG TABLET PO SCH (08:43)
[2021-04-30] MEDS: SENNOSIDES 8.6 MG TABLET PO SCH (08:43)
[2021-04-30] MEDS: POTASSIUM CHLORIDE 20 MEQ TAB.PRT.SR PO SCH ×2 (09:25→16:43)
--- NOTE | 2021-04-30 13:00 | NUR ---
RN NOTE RESTRAINTS REORDERED BY MD AT BEDSIDE. WILL CONTINUE TO PERFORM RESTRAINTS CHECK. WILL CONTINUE TO MONITOR
--- NOTE | 2021-04-30 18:41 | NUR ---
RN CLOSING NOTE PATIENT IS IN BED, EYES CLOSED, EASILY AROUSED. PATIENT REMAINS CONFUSED, A/O X 1. BILATERAL WRIST RESTRAINTS ON TO PREVENT PATIENT FROM PULLING OUT TUBES. ORDER WAS RENEWED. PERFORMED CIRCULATION CHECKS AND RESTRAINTS CHECKS THROUGHOUT ENTIRE SHIFT. NO SIGNED OF DISTRESS OR INJURY NOTED. PATIENT TOLERATES ROOM AIR, BREATHING EVEN AND UNLABORED. TELE MONITOR READS 81 BPM SR. IV ACCESS ON R HAND # 20 GAUGE AND RAC # 20 GAUGE, PATENT AND INTACT. ALL MEDICATIONS GIVEN ORDERED. SAFETY MEASURES IN PLACE, BED LOW LOCKED, CALL LIGHT WITHIN REACH. WILL ENDORSE TO ONCOMING SHIFT.
[2021-04-30] MEDS: Potassium Chloride 40 MEQ in IV D5W 1,000 ML IV SCH (19:41)
--- NOTE | 2021-04-30 20:00 | NUR ---
RN NOTE PT IN BED, AWAKE, CONFUSED. NOT IN ANY DISTRESS. PT ON ROOM AIR. NO S/SX OF DISCOMFORT OF PAIN NOTED. WITH SAMANTHA WRIST SOFT RESTRAINTS, CIRCULATION WNL. LOW IN PLACE, DRAINING CLEAR SAUNDRA URINE. KCL 40MEQ IN D5W IV STARTED ORDERED. IV PATENT AND INTACT. MANAGER IN TRAINING ASSISTING PT TO EAT, TOLERATING FOOD. WILL CONTINUE TO MONITOR. ALL SAFETY IN PLACE.
[2021-04-30] MEDS: TAMSULOSIN 0.4 MG CAP.SR.24H PO SCH (22:37)
[2021-04-30] MEDS: risperiDONE 1 MG TABLET PO SCH (22:37)
[2021-05-01 04:00] VITALS: BP 134/73
--- NOTE | 2021-05-01 06:35 | NUR ---
RN NOTE PT REMAINS IN BED, TOLERATING ROOM AIR. NO DISTRESS NOTED. RAC IV LINE REMOVED, INFILTRATED. NEW IV LINE INSERTED ON RHAND 22G WITH GOOD BLOOD RETURN, CONTINUE ON D5W WITH KCL. RESTRAINTS REMAIN ON WITH GOOD CIRCULATION, NO SKIN BREAKDOWN NOTED. PT HAD 2 BM, KEPT CLEAN AND DRY. ALL SAFETY IN PLACE. WILL ENDORSE TO NEXT SHIFT NURSE FOR SANJIV.
--- NOTE | 2021-05-01 06:58 | NUR ---
COVID PCR NEGATIVE
[2021-05-01] MEDS: DOCUSATE SODIUM 100 MG CAPSULE PO SCH (09:11)
[2021-05-01] MEDS: FAMOTIDINE (20 MG) 20 MG TABLET PO SCH (09:12)
[2021-05-01] MEDS: ATORVASTATIN 10 MG TABLET PO SCH (09:12)
[2021-05-01] MEDS: FINASTERIDE (5 MG) 5 MG TABLET PO SCH (09:13)
[2021-05-01] MEDS: SENNOSIDES 8.6 MG TABLET PO SCH (09:13)
[2021-05-01] MEDS: SERTRALINE HCL 50 MG TABLET PO SCH (09:14)
[2021-05-01 10:00] LABS: ALBUMIN 2.6 g/dL (3.4-5.0); BILIRUBIN,TOTAL 0.3 mg/dL (0.2-1.0); CALCIUM, SERUM 7.9 mg/dL (8.5-10.1); POTASSIUM 3.4 mmol/L (3.5-5.1); TOTAL PROTEIN, SERUM 6.2 g/dL (6.4-8.2)
[2021-05-01] MEDS ORDERED: POTASSIUM CHLORIDE 20 MEQ TAB.PRT.SR PO STA (10:11)
[2021-05-01] MEDS ORDERED: POTA20TA83 PO (10:11)
[2021-05-01 12:36] VITALS: BP 126/86
[2021-05-01] MEDS: Potassium Chloride 40 MEQ in IV D5W 1,000 ML IV SCH (14:13)
--- NOTE | 2021-05-01 15:02 | NUR ---
RN NOTES PATIENT D/C AND TRANSFERRED BY TWO [employer]PERATIONS MANAGER TO [facility], SAFE TRANSFER FROM BED TO GURNEY TO EMT TRANSPORT SAFE TRANSFER FROM BUILDING TO VEHICLE ,. ALL EDUCATIONAL PACKETS PROVIDED, RN GREENHOUSE ASSISTANT OF [facility] AWARE OF PATIENT STATUS AND ALL D/C INFORMATION PRINTED AND GIVEN IN PACKET TO [employer] MANAGER TO GIVE TO RN GREENHOUSE ASSISTANT AT [facility], RESTRAINTS REMOVED AND PATIENT CALMED DOWN AND WAS RESTING PEACEFULLY AFTER RESTRAINTS HAD BEEN REMOVED,1 LARGE BM AND TOOK ALL PO MEDICATIONS CRUSHED WITH PUDDING, NO C/O PAIN, NO SOB AND NO DISTRESS NOTED AT THIS TIME.
== END 2021-05-01 15:20 | DRG 699 ==
LOC: ER 06:05 → TELE1 12:34 → MEDSG1 04-30 09:28
PROVIDERS: ADMIT Internal Medicine; ATTEND Internal Medicine
DX: T83.021A Displacement of indwelling urethral catheter, initial encounter (principal); I13.0 Hypertensive heart and chronic kidney disease with heart failure and stage 1 through stage 4 chronic kidney disease, or unspecified chronic kidney disease; E87.1 Hypo-osmolality and hyponatremia; N13.30 Unspecified hydronephrosis; N18.9 Chronic kidney disease, unspecified; E87.6 Hypokalemia; E78.5 Hyperlipidemia, unspecified; Z20.822 Contact with and (suspected) exposure to COVID-19; Y84.6 Urinary catheterization as the cause of abnormal reaction of the patient, or of later complication, without mention of misadventure at the time of the procedure; Y92.099 Unspecified place in other non-institutional residence as the place of occurrence of the external cause; G30.9 Alzheimer's disease, unspecified; F02.80 Dementia in other diseases classified elsewhere, unspecified severity, without behavioral disturbance, psychotic disturbance, mood disturbance, and anxiety; Z79.899 Other long term (current) drug therapy; D72.829 Elevated white blood cell count, unspecified; I50.9 Heart failure, unspecified; N40.0 Benign prostatic hyperplasia without lower urinary tract symptoms; R31.9 Hematuria, unspecified
CPT/HCPCS: 36415; 71045-TC; 80048-TC; 80053-TC; 80076-TC; 81001; 83605-TC; 83735-TC; 83880; 84100-TC; 84484-TC; 85025-TC; 85610-TC; 85730-TC; 87040-TC; 87081-TC; 87086-TC; 97112-TC; 97530-TC; C9803; G0378; J1940; J3480; J3490; J7040; J7050; J7070; U0003